=== PATIENT | male | born 1975 | race American Indian/Alaskan Native ===

== ENCOUNTER 2019-11-22 01:07 | Emergency (ER) | payer SELFPAY ==
[2019-11-22] MEDS ORDERED: ASPIRIN 325 MG TAB PO ONE (01:16)
--- NOTE | 2019-11-22 01:46 | XRay Report ---
CHEST 1 VIEW INDICATION / CLINICAL INFORMATION: Chest Pain. COMPARISON: FINDINGS: SUPPORT DEVICES: None. HEART / MEDIASTINUM: No significant abnormality. LUNGS / PLEURA: No significant pulmonary or pleural abnormality.. No pneumothorax. ADDITIONAL FINDINGS: No significant additional findings. IMPRESSION: 1. No acute findings. Signer Name: Syed Ramírez MD Signed: 11/22/2019 1:41 AM Workstation Name: [id number]
[2019-11-22 02:24] LABS: Hematocrit 37.5 % (35.5-45.6); Hemoglobin 12.5 gm/dl (11.8-15.2); Mean Corpuscular HGB Conc 33 % (32-34); Mean Corpuscular Volume 90 fl (84-94); Platelet Count 230 K/mm3 (140-440); Red Blood Count 4.19 M/mm3 (3.65-5.03); Red Cell Distribution Width 14.6 % (13.2-15.2)
[2019-11-22 02:47] LABS: BUN/Creatinine Ratio 25; Blood Urea Nitrogen 27 mg/dL (9-20); Calcium 9.7 mg/dL (8.4-10.2); Hemolysis Index 8
[2019-11-22 03:45] LABS: Basophils % (Manual) 0 % (0.0-1.8); Eosinophils % (Manual) 0 % (0.0-4.3); Total Cells Counted 100
[2019-11-22 03:47] LABS: Platelet Estimate Consistent w Auto; RBC Morphology Normal
[2019-11-22 07:47] VITALS: BP 145/78
--- NOTE | 2019-11-22 07:49 | Emergency Department Report ---
ED Chest Pain HPI - General Chief Complaint: Chest Pain Stated Complaint: CHEST PAIN/HAND DISCOLORATION Time Seen by Provider: 11/22/19 07:47 Source: patient Mode of arrival: Ambulatory Limitations: No Limitations - History of Present Illness Initial Comments: On my encounter this patient is found sleeping comfortably. He is easily awoken and has no complaints. He states his chest "felt funny last night" and that is the reason why he came. He denies discoloration of his hands. They they do appear entirely normal. I do not find ankle swelling either as per the T-triage note. The patient denies pleuritic pain, recent travel, leg pain or swelling. He states that he has been admitted here and had a negative stress test in the past. He states he has no primary care doctor. He does not follow up with grizzly worker. In addition he states that he is had a monitor and a stress test in [place] before he moved down here. These tests were also negative. He takes no medication. He smokes occasionally. The patient describes intermittent nonexertional chest pressure in the center of his chest which does not radiate. It "just felt funny last night". He reports no associated symptoms. MD Complaint: chest pain -: year(s) Onset: during rest Pain Location: substernal Pain Radiation: none Severity: mild Severity scale (0 -10): 0 Quality: heaviness Consistency: intermittent, now resolved Improves With: nothing Worsens With: nothing re: denies: nausea, vomting, diaphoresis, dyspnea, sense of impending doom Other Symptoms: denies: cough, fever, syncope Treatments Prior to Arrival: none Aspirin use within the Past 7 Days: (0) No - Related Data Allergies Allergy/AdvReac Type Severity Reaction Status Date / Time No Known Allergies Allergy Verified 11/22/19 01:14 Heart Score - HEART Score History: Slightly suspicious EKG: Normal Age: 45-65 Risk factors: 1-2 risk factors Troponin: < normal limit HEART Score: 2 - Critical Actions Critical Actions: 0-3 pts:0.9-1.7%risk of adverse cardiac event.Candidate for discharge ED Review of Systems ROS: Stated complaint: CHEST PAIN/HAND DISCOLORATION Other details as noted in HPI Constitutional: denies: chills, fever Eyes: denies: eye pain, eye discharge, vision change ENT: denies: ear pain, throat pain Respiratory: denies: cough, shortness of breath, wheezing Cardiovascular: chest pain. denies: palpitations Endocrine: no symptoms reported Gastrointestinal: denies: abdominal pain, nausea, diarrhea Genitourinary: denies: urgency, dysuria Musculoskeletal: denies: back pain, joint swelling, arthralgia Skin: denies: rash, lesions Neurological: denies: headache, weakness, paresthesias Psychiatric: denies: anxiety, depression Hematological/Lymphatic: denies: easy bleeding, easy bruising ED Past Medical Hx - Past Medical History Previous Medical History?: No - Surgical History Past Surgical History?: Yes Additional Surgical History: hernia. right eye - Social History Smoking Status: Current Some Day Smoker Substance Use Type: Alcohol ED Physical Exam - General Limitations: No Limitations General appearance: alert, in no apparent distress - Head Head exam: Present: atraumatic, normocephalic - Eye Eye exam: Present: normal appearance. Absent: scleral icterus - ENT ENT exam: Present: mucous membranes moist - Neck Neck exam: Present: normal inspection. Absent: tenderness - Respiratory Respiratory exam: Present: normal lung sounds bilaterally. Absent: respiratory distress - Cardiovascular Cardiovascular Exam: Present: regular rate, normal rhythm. Absent: systolic murmur, diastolic murmur, rubs, gallop - GI/Abdominal GI/Abdominal exam: Present: soft, normal bowel sounds. Absent: distended, te nderness, guarding, rebound, rigid - Rectal Rectal exam: Present: deferred - Extremities Exam Extremities exam: Present: normal inspection, normal capillary refill. Absent: tenderness, pedal edema, joint swelling, calf tenderness - Back Exam Back exam: Present: normal inspection - Neurological Exam Neurological exam: Present: alert, oriented X3, CN II-XII intact. Absent: motor sensory deficit - Psychiatric Psychiatric exam: Present: normal affect, normal mood - Skin Skin exam: Present: warm, dry, intact, normal color. Absent: rash ED Course Vital Signs 11/22/19 11/22/19 11/22/19 01:13 01:17 07:46 Temperature 98.1 F 98.2 F Pulse Rate 103 H 79 Respiratory 18 14 Rate Blood Pressure 129/79 Blood Pressure 145/78 [Right] O2 Sat by Pulse 96 97 Oximetry - Reevaluation(s) Reevaluation #1: Patient is appropriate for outpatient referral. 11/22/19 08:17 SEVEN score - Seven Score Age > 65: (0) No Aspirin use within the Past 7 Days: (0) No 3 or more CAD Risk Factors: (0) No 2 or more Angina events in past 24 hrs: (0) No Known CAD with more than 50% Stenosis: (0) No Elevated Cardiac Markers: (0) No ST Deviation Greater than 0.5mm: (0) No SEVEN Score: 0 ED Medical Decision Making - Lab Data Result diagrams: 11/22/19 01:51 11/22/19 01:51 Laboratory Results - last 24 hr 11/22/19 11/22/19 11/22/19 01:51 01:51 04:32 WBC 6.0 RBC 4.19 Hgb 12.5 Hct 37.5 MCV 90 MCH 30 MCHC 33 RDW 14.6 Plt Count 230 Lymph % (Auto) Director Of Early Childhood Education Add Manual Diff Complete Total Counted 100 Seg Neuts % (Manual) 40.0 Band Neutrophils % 0 Lymphocytes % (Manual) 56.0 H Reactive Lymphs % (Man) 0 Monocytes % (Manual) 4.0 Eosinophils % (Manual) 0 Basophils % (Manual) 0 Metamyelocytes % 0 Myelocytes % 0 Promyelocytes % 0 Blast Cells % 0 Nucleated RBC % Not Reportable Seg Neutrophils # Man 2.4 Band Neutrophils # 0.0 Lymphocytes # (Manual) 3.4 Abs React Lymphs (Man) 0.0 Monocytes # (Manual) 0.2 Eosinophils # (Manual) 0.0 Basophils # (Manual) 0.0 Metamyelocytes # 0.0 Myelocytes # 0.0 Promyelocytes # 0.0 Blast Cells # 0.0 WBC Morphology Not Reportable Hypersegmented Neuts Not Reportable Hyposegmented Neuts Not Reportable Hypogranular Neuts Not Reportable Smudge Cells Not Reportable Toxic Granulation Not Reportable Toxic Vacuolation Not Reportable Dohle Bodies Not Reportable Pelger-Huet Anomaly Not Reportable Katerina Rods Not Reportable Platelet Estimate Consistent w auto Clumped Platelets Not Reportable Plt Clumps, EDTA Not Reportable Large Platelets Not Reportable Giant Platelets Not Reportable Platelet Satelliting Not Reportable Plt Morphology Comment Not Reportable RBC Morphology Normal Dimorphic RBCs Not Reportable Polychromasia Not Reportable Hypochromasia Not Reportable Poikilocytosis Not Reportable Anisocytosis Not Reportable Microcytosis Not Reportable Macrocytosis Not Reportable Spherocytes Not Reportable Pappenheimer Bodies Not Reportable Sickle Cells Not Reportable Target Cells Not Reportable Tear Drop Cells Not Reportable Ovalocytes Not Reportable Helmet Cells Not Reportable [place] Bodies Not Reportable [place] Rings Not Reportable Saw Cells Not Reportable Bite Cells Not Reportable Crenated Cell Not Reportable Elliptocytes Not Reportable Acanthocytes (Spur) Not Reportable Rouleaux Not Reportable Hemoglobin C Crystals Not Reportable Schistocytes Not Reportable Malaria parasites Not Reportable Claudio Bodies Not Reportable Hem Pathologist Commnt No Sodium 142 Potassium 4.2 Chloride 101.3 Carbon Dioxide 23 Anion Gap 22 BUN 27 H Creatinine 1.1 Estimated GFR > 60 BUN/Creatinine Ratio 25 Glucose 114 H Calcium 9.7 Troponin T < 0.010 < 0.010 11/22/19 07:10 WBC RBC Hgb Hct MCV MCH MCHC RDW Plt Count Lymph % (Auto) Add Manual Diff Total Counted Seg Neuts % (Manual) Band Neutrophils % Lymphocytes % (Manual) Reactive Lymphs % (Man) Monocytes % (Manual) Eosinophils % (Manual) Basophils % (Manual) Metamyelocytes % Myelocytes % Promyelocytes % Blast Cells % Nucleated RBC % Seg Neutrophils # Man Band Neutrophils # Lymphocytes # (Manual) Abs React Lymphs (Man) Monocytes # (Manual) Eosinophils # (Manual) Basophils # (Manual) Metamyelocytes # Myelocytes # Promyelocytes # Blast Cells # WBC Morphology Hypersegmented Neuts Hyposegmented Neuts Hypogranular Neuts Smudge Cells Toxic Granulation Toxic Vacuolation Dohle Bodies Pelger-Huet Anomaly Katerina Rods Platelet Estimate Clumped Platelets Plt Clumps, EDTA Large Platelets Giant Platelets Platelet Satelliting Plt Morphology Comment RBC Morphology Dimorphic RBCs Polychromasia Hypochromasia Poikilocytosis Anisocytosis Microcytosis Macrocytosis Spherocytes Pappenheimer Bodies Sickle Cells Target Cells Tear Drop Cells Ovalocytes Helmet Cells [place] Bodies [place] Rings [place] Cells Bite Cells Crenated Cell Elliptocytes Acanthocytes (Spur) Rouleaux Hemoglobin C Crystals Schistocytes Malaria parasites Claudio Bodies Hem Pathologist Commnt Sodium Potassium Chloride Carbon Dioxide Anion Gap BUN Creatinine Estimated GFR BUN/Creatinine Ratio Glucose Calcium Troponin T < 0.010 - EKG Data -: EKG Interpreted by Ct EKG shows normal: sinus rhythm, axis, intervals, QRS complexes, ST-T waves Rate: normal - EKG Data Interpretation: normal EKG - Radiology Data Radiology results: report reviewed (normal) Critical care attestation.: If time is entered above; I have spent that time in minutes in the direct care of this critically ill patient, excluding procedure time. ED Disposition Clinical Impression: Atypical chest pain Disposition: TO HOME OR SELFCARE Is pt being admited?: No Does the pt Need Aspirin: No Condition: Stable Instructions: Chest Pain (ED), How to Stop Smoking (ED) Additional Instructions: I would recommend a baby aspirin a day. I recommend follow-up with primary care doctor/grizzly worker. Return to the emergency department any active chest pain as needed. Referrals: NATALIA MCCULLOUGH MD [Primary Care Provider] - 3-5 Days MIGDALIA HANEY MD [Staff Physician] - 2-3 Days [facility] [Provider Group] - 3-5 Days Time of Disposition: 08:18
[2019-11-22] MEDS ORDERED: ASPIRIN 325 MG TAB ONE (08:43)
== END 2019-11-22 09:45 | disposition home or self-care (01) ==
LOC: ED 01:07
DX: R07.89 Other chest pain (principal); L81.9 Disorder of pigmentation, unspecified; F17.200 Nicotine dependence, unspecified, uncomplicated; F10.10 Alcohol abuse, uncomplicated; Z98.890 Other specified postprocedural states
CPT/HCPCS: 36415; 71045; 80048; 84484; 85007; 85025; 93005; 93010

== ENCOUNTER 2019-12-06 01:33 | Emergency (ER) | payer SELFPAY ==
[2019-12-06] MEDS ORDERED: predniSONE 20 MG TAB PO ONE (02:43)
[2019-12-06] MEDS ORDERED: IBUPROFEN 600 MG TAB PO ONE (02:43)
[2019-12-06] MEDS ORDERED: ACETAMINOPHEN 500 MG TAB PO ONE (02:43)
--- NOTE | 2019-12-06 03:41 | Emergency Department Report ---
ED General Adult HPI - General Chief complaint: Extremity Injury, Upper Stated complaint: RT SHOULDER PAIN LT ARM TINGLING Source: patient Mode of arrival: Ambulatory Limitations: No Limitations - History of Present Illness Initial comments: Patient is a 44-year-old -[place] male with a history of chronic osteoarthritis who presented to the ED with acute exacerbation of his chronic pain characterized by severe nontraumatic left hip pain and right shoulder pain for the last 2 days. Patient states that he has not been able to sleep because of severe pain. Patient denies fall, traumatic injury, dizziness, heavy lifting, nausea, vomiting, chest pain, shortness of breath, fever, chills, cough, change in vision or abdominal pain. MD Complaint: left hip pain; right shoulder pain -: Sudden, month(s) (3) Location: upper extremity (right shoulder), lower extremity (left hip) Radiation: non-radiation Severity scale (0 -10): 6 Quality: aching, sharp Consistency: constant Improves with: none Worsens with: movement Associated Symptoms: denies other symptoms. denies: confusion, chest pain, cough, diaphoresis, fever/chills, headaches, loss of appetite, malaise, nausea/vomiting, shortness of breath, syncope, weakness Treatments Prior to Arrival: none - Related Data Previous Rx's Medication Instructions Recorded Last Taken Type Naproxen 500 mg PO Q12H PRN #30 tablet 12/06/19 Unknown Rx predniSONE [Deltasone] 60 mg PO QDAY #15 tab 12/06/19 Unknown Rx traMADoL [Ultram] 50 mg PO Q6HR PRN #12 tablet 12/06/19 Unknown Rx Allergies Allergy/AdvReac Type Severity Reaction Status Date / Time No Known Allergies Allergy Verified 11/22/19 01:14 ED Review of Systems ROS: Stated complaint: RT SHOULDER PAIN LT ARM TINGLING Other details as noted in HPI Constitutional: denies: chills, fever Eyes: denies: eye pain, eye discharge, vision change ENT: denies: ear pain, throat pain Respiratory: denies: cough, shortness of breath, wheezing Cardiovascular: denies: chest pain, palpitations Endocrine: no symptoms reported Gastrointestinal: denies: abdominal pain, nausea, diarrhea Genitourinary: denies: urgency, dysuria Musculoskeletal: arthralgia (left hip and right shoulder). denies: back pain, joint swelling Skin: denies: rash, lesions Neurological: denies: headache, weakness, paresthesias Psychiatric: denies: anxiety, depression Hematological/Lymphatic: denies: easy bleeding, easy bruising ED Past Medical Hx - Past Medical History Previous Medical History?: No - Surgical History Past Surgical History?: Yes Additional Surgical History: hernia. right eye - Social History Smoking Status: Current Every Day Smoker Substance Use Type: Alcohol - Medications Home Medications: Home Medications Medication Instructions Recorded Confirmed Last Taken Type Naproxen 500 mg PO Q12H PRN #30 tablet 12/06/19 Unknown Rx predniSONE [Deltasone] 60 mg PO QDAY #15 tab 12/06/19 Unknown Rx traMADoL [Ultram] 50 mg PO Q6HR PRN #12 tablet 12/06/19 Unknown Rx ED Physical Exam - General Limitations: No Limitations General appearance: alert, in no apparent distress - Head Head exam: Present: atraumatic, normocephalic, normal inspection - Eye Eye exam: Present: normal appearance, PERRL, EOMI Pupils: Present: normal accommodation - ENT ENT exam: Present: normal exam, normal orophraynx, mucous membranes moist, TM's normal bilaterally, normal external ear exam - Neck Neck exam: Present: normal inspection, full ROM - Respiratory Respiratory exam: Present: normal lung sounds bilaterally. Absent: respiratory distress, wheezes, rales, rhonchi, chest wall tenderness, accessory muscle use, decreased breath sounds - Cardiovascular Cardiovascular Exam: Present: regular rate, normal rhythm, normal heart sounds. Absent: systolic murmur, diastolic murmur, rubs, gallop - GI/Abdominal GI/Abdominal exam: Present: soft, normal bowel sounds. Absent: tenderness, hyperactive bowel sounds, hypoactive bowel sounds, organomegaly - Extremities Exam Extremities exam: Present: normal inspection, full ROM, tenderness (Palpable right shoulder and left hip tenderness), normal capillary refill. Absent: pedal edema, joint swelling - Back Exam Back exam: Present: normal inspection, full ROM. Absent: tenderness, CVA tenderness (R), CVA tenderness (L), muscle spasm - Neurological Exam Neurological exam: Present: alert, oriented X3, CN II-XII intact, normal gait, reflexes normal - Psychiatric Psychiatric exam: Present: normal affect, normal mood - Skin Skin exam: Present: warm, dry, intact, normal color. Absent: rash ED Course Vital Signs 12/06/19 12/06/19 01:37 02:52 Temperature 99.2 F Pulse Rate 96 H Respiratory 18 18 Rate Blood Pressure 123/84 O2 Sat by Pulse 98 Oximetry ED Medical Decision Making - Medical Decision Making This is a 44-year-old male with a history of chronic osteoarthritis who presented to the ED with complaint of acute exacerbation of his chronic pain corrected by her severe right shoulder and left hip pain. In the ED, patient is alert and oriented x3 and is not in any distress. Patient was treated for pain and discharged home on medications. Patient was advised to follow-up with his primary care physician in 7 to 10 days for reevaluation or return to the ED immediately if symptoms get worse. - Differential Diagnosis shoulder bursititis; Hip bursitis; Chronic osteoarthritis Critical care attestation.: If time is entered above; I have spent that time in minutes in the direct care of this critically ill patient, excluding procedure time. ED Disposition Clinical Impression: Bursitis of right shoulder, Chronic osteoarthritis Bursitis of left hip Qualifiers: Hip bursitis location: unspecified Qualified Code(s): M70.72 - Other bursitis of hip, left hip Disposition: - TO HOME OR SELFCARE Is pt being admited?: No Does the pt Need Aspirin: No Condition: Stable Instructions: Osteoarthritis (ED), Hip Bursitis (ED), Shoulder Bursitis (ED) Additional Instructions: Take medication with food, drink plenty of fluids and follow-up with your primary care physician in 5 to 7 days for reevaluation. Return to the ED immediately if symptoms get worse. Prescriptions: predniSONE [Deltasone] 60 mg PO QDAY #15 tab Naproxen 500 mg PO Q12H PRN #30 tablet PRN Reason: Pain , Severe (7-10) traMADoL [Ultram] 50 mg PO Q6HR PRN #12 tablet PRN Reason: Pain Referrals: [facility] [Outside] - 3-5 Days Time of Disposition: 03:42 Print Language: COMORAN
[2019-12-06 04:37] VITALS: BP 128/65
== END 2019-12-06 04:36 | disposition home or self-care (01) ==
LOC: ED 01:33
DX: M70.72 Other bursitis of hip, left hip (principal); M75.51 Bursitis of right shoulder; M15.8 Other polyosteoarthritis; F17.200 Nicotine dependence, unspecified, uncomplicated; Z98.890 Other specified postprocedural states
CPT/HCPCS: 99282; J7512

== ENCOUNTER 2020-01-02 01:15 | Emergency (ER) | payer SELFPAY ==
[2020-01-02 01:22] VITALS: BP 125/69
[2020-01-02] MEDS ORDERED: HYDROcodone/ACETAMINOPHEN 5-325 MG TAB PO ONE (02:50)
[2020-01-02] MEDS ORDERED: SODIUM CHLORIDE 0.9% 1000 ML 1,000 ML IV ONE (02:50)
[2020-01-02] MEDS ORDERED: IBUPROFEN 800 MG TAB PO ONE (02:52)
[2020-01-02 03:22] LABS: Basophils % (Auto) 0.3 % (0.0-1.8); Eosinophils % (Auto) 0.2 % (0.0-4.3); Hematocrit 38.7 % (35.5-45.6); Lymphocytes # (Auto) 2.5 K/mm3 (1.2-5.4); Lymphocytes % (Auto) 48.1 % (13.4-35.0); Mean Corpuscular HGB Conc 34 % (32-34); Mean Corpuscular Volume 89 fl (84-94); Monocytes # (Auto) 0.5 K/mm3 (0.0-0.8); Monocytes % (Auto) 8.9 % (0.0-7.3); Platelet Count 223 K/mm3 (140-440); Red Blood Count 4.36 M/mm3 (3.65-5.03); Red Cell Distribution Width 14.8 % (13.2-15.2)
[2020-01-02 03:36] LABS: Alanine Aminotransferase 17 units/L (7-56); Albumin 4.3 g/dL (3.9-5); BUN/Creatinine Ratio 9; Blood Urea Nitrogen 12 mg/dL (9-20); Calcium 9.4 mg/dL (8.4-10.2); Hemolysis Index 4
--- NOTE | 2020-01-02 03:36 | XRay Report ---
RIGHT FOOT, 3 VIEWS INDICATION / CLINICAL INFORMATION: foot pain wound. COMPARISON: None available. FINDINGS: No fracture or dislocation. Mild degenerative changes are seen throughout the foot. There appears to be some soft tissue swelling along the medial aspect of the midfoot, adjacent to the first metatarsal bone. There are a few tiny radiopaque foreign objects within the soft tissues in th is location of uncertain etiology. No abnormal gas collection. No evidence for osteomyelitis. IMPRESSION: 1. No radiographic evidence of osteomyelitis or fracture. 2. Focal soft tissue swelling along the medial aspect of the midfoot adjacent to the first metatarsal bone. Within this area of soft tissue swelling there are a few tiny radiopaque foreign objects of un certain etiology. Signer Name: Gogo Shore MD Signed: 01/02/2020 3:31 AM Workstation Name: [id number]
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
[2020-01-02] MEDS ORDERED: SODIUM CHLORIDE 0.9% 1000 ML IV SOLN IV ONE (04:05)
== END 2020-01-02 05:20 | disposition home or self-care (01) ==
LOC: ED 01:15
DX: L03.115 Cellulitis of right lower limb (principal); F17.200 Nicotine dependence, unspecified, uncomplicated; Z79.899 Other long term (current) drug therapy
CPT/HCPCS: 36415; 73630; 80053; 82140; 85025; 87040; 96365; 99284; J7030

== ENCOUNTER 2020-01-10 00:33 | Emergency (ER) | payer SELFPAY ==
[2020-01-10 04:09] VITALS: BP 155/102
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
[2020-01-10] MEDS ORDERED: HYDROcodone/ACETAMINOPHEN 7.5-325MG TAB PO ONE (04:37)
== END 2020-01-10 04:47 | disposition home or self-care (01) ==
LOC: ED 00:33
DX: L03.116 Cellulitis of left lower limb (principal); I10 Essential (primary) hypertension; F17.200 Nicotine dependence, unspecified, uncomplicated; Z98.890 Other specified postprocedural states; Z79.899 Other long term (current) drug therapy
CPT/HCPCS: 99282

== ENCOUNTER 2020-01-10 23:50 | Emergency (ER) | payer SELFPAY | END 2020-01-11 00:40 | disposition left against medical advice (07) | LOC: ED 23:50 | DX: M79.671 Pain in right foot (principal); Z53.21 Procedure and treatment not carried out due to patient leaving prior to being seen by health care provider ==

== ENCOUNTER 2020-01-11 06:16 | Emergency (ER) | payer SELFPAY ==
[2020-01-11] MEDS ORDERED: IBUPROFEN 600 MG TAB PO ONE (08:28)
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
[2020-01-11 08:54] VITALS: BP 114/74
== END 2020-01-11 09:03 | disposition left against medical advice (07) ==
LOC: ED 06:16
DX: G89.29 Other chronic pain (principal); M25.552 Pain in left hip; M79.671 Pain in right foot; I10 Essential (primary) hypertension
CPT/HCPCS: 99282

== ENCOUNTER 2020-03-04 00:19 | Emergency (ER) | payer SELFPAY ==
--- NOTE | 2020-03-04 01:58 | Emergency Department Report ---
ED Back Pain/Injury HPI - General Chief Complaint: Back Pain/Injury Stated Complaint: HIP PAIN Source: patient Limitations: No Limitations - History of Present Illness Initial Comments: Patient is a 44-year-old -[place] male with past medical history of chronic back pain and chronic polyarticular joint pains who presents to the ED with complaint of worsening back pain and severe right shoulder pain for the last 1 week. Patient states that the pain is worse at rest but improves with physical activity. Patient denies fall, traumatic injury, nausea, vomiting, chest pain, shortness of breath, headache, dizziness, numbness and tingling or weakness of upper and lower extremities bilaterally, diarrhea, hematuria, testicular pain, sore throat or headache. MD Complaint: back pain (upper and lower), other (Polyarticular joint pains) -: Gradual, month(s) (3) Similar Symptoms Previously: Yes (chronic ) Place: home Radiation: none Severity: severe Severity scale (0 -10): 8 Quality: sharp, aching Consistency: constant Improves With: none Worsens With: none Context: other (chronic osteoarthritis) Associated Symptoms: denies other symptoms. denies: confusion, weakness, chest pain, numbness, difficulty walking, cough, difficulty urinating, diaphoresis, incontinence, fever/chills, headaches, abdominal pain, nausea/vomiting, rash, seizure, shortness of breath - Related Data Previous Rx's Medication Instructions Recorded Last Taken Type Acetaminophen/Codeine [Tylenol 1 tab PO Q6H PRN #12 tab 01/02/20 Unknown Rx /Codeine # 3 tab] Clindamycin [Clindamycin CAP] 300 mg PO Q8H #30 cap 01/02/20 Unknown Rx Naproxen 500 mg PO Q12H PRN #30 tablet 03/04/20 Unknown Rx predniSONE [Deltasone] 60 mg PO QDAY #15 tab 03/04/20 Unknown Rx tiZANidine [Zanaflex 4mg TAB] 4 mg PO Q8H PRN #15 tablet 03/04/20 Unknown Rx traMADoL [Ultram 50 MG tab] 50 mg PO Q6HR PRN #12 tablet 03/04/20 Unknown Rx Allergies Allergy/AdvReac Type Severity Reaction Status Date / Time No Known Allergies Allergy Verified 11/22/19 01:14 ED Review of Systems ROS: Stated complaint: HIP PAIN Other details as noted in HPI Constitutional: denies: chills, fever Eyes: denies: eye pain, eye discharge, vision change ENT: denies: ear pain, throat pain Respiratory: denies: cough, shortness of breath, wheezing Cardiovascular: denies: chest pain, palpitations Endocrine: no symptoms reported Gastrointestinal: denies: abdominal pain, nausea, diarrhea Genitourinary: denies: urgency, dysuria Musculoskeletal: back pain (Upper and lower back pain), arthralgia (Diffuse joint pain). denies: joint swelling Skin: denies: rash, lesions Neurological: denies: headache, weakness, paresthesias Psychiatric: denies: anxiety, depression Hematological/Lymphatic: denies: easy bleeding, easy bruising ED Past Medical Hx - Past Medical History Previous Medical History?: Yes Hx Hypertension: Yes Additional medical history: irreg heartbeat - Surgical History Past Surgical History?: Yes Additional Surgical History: hernia. right eye - Social History Smoking Status: Never Smoker Substance Use Type: Alcohol - Medications Home Medications: Home Medications Medication Instructions Recorded Confirmed Last Taken Type Acetaminophen/Codeine [Tylenol 1 tab PO Q6H PRN #12 tab 01/02/20 Unknown Rx /Codeine # 3 tab] Clindamycin [Clindamycin CAP] 300 mg PO Q8H #30 cap 01/02/20 Unknown Rx Naproxen 500 mg PO Q12H PRN #30 tablet 03/04/20 Unknown Rx predniSONE [Deltasone] 60 mg PO QDAY #15 tab 03/04/20 Unknown Rx tiZANidine [Zanaflex 4mg TAB] 4 mg PO Q8H PRN #15 tablet 03/04/20 Unknown Rx traMADoL [Ultram 50 MG tab] 50 mg PO Q6HR PRN #12 tablet 03/04/20 Unknown Rx ED Physical Exam - General Limitations: No Limitations General appearance: alert, in no apparent distress - Head Head exam: Present: atraumatic, normocephalic, normal inspection - Eye Eye exam: Present: normal appearance, PERRL, EOMI Pupils: Present: normal accommodation - ENT ENT exam: Present: normal exam, normal orophraynx, mucous membranes moist, TM's normal bilaterally, normal external ear exam - Neck Neck exam: Present: normal inspection, full ROM. Absent: tenderness - Respiratory Respiratory exam: Present: normal lung sounds bilaterally. Absent: respiratory distress, wheezes, rales, rhonchi, chest wall tenderness, accessory muscle use, decreased breath sounds, prolonged expiratory - Cardiovascular Cardiovascular Exam: Present: regular rate, normal rhythm, normal heart sounds. Absent: systolic murmur, diastolic murmur, rubs, gallop - GI/Abdominal GI/Abdominal exam: Present: soft, normal bowel sounds. Absent: tenderness, guarding, hyperactive bowel sounds, hypoactive bowel sounds - Extremities Exam Extremities exam: Present: normal inspection, full ROM, tenderness (Diffuse upper and lower extremity joint tenderness worse in the right shoulder), normal capillary refill - Back Exam Back exam: Present: normal inspection, full ROM, tenderness (Palpable posterior midthoracic and lumbosacral paraspinal musculoskeletal tenderness), muscle spasm, paraspinal tenderness - Neurological Exam Neurological exam: Present: alert, oriented X3, CN II-XII intact, normal gait, reflexes normal - Psychiatric Psychiatric exam: Present: normal affect, normal mood - Skin Skin exam: Present: warm, dry, intact, normal color. Absent: rash ED Course Vital Signs 03/04/20 03/04/20 03/04/20 00:27 02:18 02:25 Temperature 97.4 F L 97.8 F Pulse Rate 82 74 Respiratory 16 16 16 Rate Blood Pressure 124/74 Blood Pressure 112/64 [Left] O2 Sat by Pulse 100 98 Oximetry ED Medical Decision Making - Medical Decision Making This is a 44-year-old -[place] male with past medical history of chronic back pain and chronic polyarticular joint pains who presents to the ED with complaint of worsening back pain and severe right shoulder pain for the last 1 week. Patient states that the pain is worse at rest but improves with physical activity. In the ED, patient is alert and oriented x3 and is not in distress. Patient was treated for pain in the ED and discharged home on medication for pain, and was advised to follow-up with his primary care physician in 7 to 10 days for reevaluation or return to the ED immediately if symptoms get worse. - Differential Diagnosis DJD; osteoarthritis; Muscle spasm; Muscle strain; Shoulder tendonitis Critical care attestation.: If time is entered above; I have spent that time in minutes in the direct care of this critically ill patient, excluding procedure time. ED Disposition Clinical Impression: Chronic osteoarthritis, Right shoulder tendinitis Chronic back pain Qualifiers: Back pain location: back pain in unspecified location Back pain laterality: unspecified Qualified Code(s): M54.9 - Dorsalgia, unspecified Disposition: TO HOME OR SELFCARE Is pt being admited?: No Does the pt Need Aspirin: No Condition: Stable Instructions: Osteoarthritis (ED), Shoulder Sprain (ED), Tendinitis (ED), Chronic Back Pain (ED) Additional Instructions: Take medication with food, drink plenty of fluids and follow-up with your primary care physician in 5 to 7 days for reevaluation. Return to the ED immediately if symptoms get worse. Prescriptions: predniSONE [Deltasone] 60 mg PO QDAY #15 tab Naproxen 500 mg PO Q12H PRN #30 tablet PRN Reason: Pain , Severe (7-10) traMADoL [Ultram 50 MG tab] 50 mg PO Q6HR PRN #12 tablet PRN Reason: Pain tiZANidine [Zanaflex 4mg TAB] 4 mg PO Q8H PRN #15 tablet PRN Reason: Muscle Spasm Referrals: [facility] [Provider Group] - 3-5 Days Forms: Work/School Release Form(ED) Time of Disposition: 02:00 Print Language: BOLIVIAN
[2020-03-04] MEDS ORDERED: IBUPROFEN 600 MG TAB PO ONE (02:07)
[2020-03-04] MEDS ORDERED: predniSONE 20 MG TAB PO ONE (02:07)
[2020-03-05 13:00] VITALS: BP 112/64
== END 2020-03-04 02:28 | disposition home or self-care (01) ==
LOC: ED 00:19
DX: M19.011 Primary osteoarthritis, right shoulder (principal); M77.9 Enthesopathy, unspecified; M54.6 Pain in thoracic spine; G89.29 Other chronic pain; I10 Essential (primary) hypertension; Z98.890 Other specified postprocedural states; Z79.2 Long term (current) use of antibiotics; Z79.899 Other long term (current) drug therapy
CPT/HCPCS: 99282; J7512